=== PATIENT | female | born 1980 ===

== ENCOUNTER 2019-10-20 15:15 | Outpatient (CLI) | payer OTHER ==
--- NOTE | 2019-10-20 15:46 | RAD ---
TWO VIEWS CHEST: Comparison: None History: Pleuritic chest pain. FINDINGS: Two views of the chest shows normal sized cardiomediastinal silhouette. There is obscuring of the lat eral aspect of the left hemidiaphragm which may represent an infiltrate or a small left pleural effus ion. This is not appreciated on the lateral radiograph. IMPRESSION: Left lower lobe infiltrate versus small left pleural effusion. POS: [facility]
== END 2019-10-20 15:16 | disposition home or self-care (01) ==
LOC: MADRAD 15:15
PROVIDERS: ATTEND Family Medicine
DX: R07.81 Pleurodynia (principal)
CPT/HCPCS: 71046; 87633

== ENCOUNTER 2019-11-07 09:40 | Outpatient (CLI) | payer OTHER ==
--- NOTE | 2019-11-07 10:01 | RAD ---
EXAM: Two views chest PROVIDED CLINICAL HISTORY: Right lower lobe pneumonia COMPARISON: 10/20/2019 FINDINGS: Cardiac silhouette and pulmonary vasculature are within normal limits. The lungs are clear on today' s examination. The previously seen area of consolidation anterior aspect left lower lobe has resolved likely due to resolution of pneumonia. The osseous structures have a normal appearance. IMPRESSION: 1. No acute cardiopulmonary process. 2. Resolution of focal area of consolidation anterior left lower lobe likely related to resolution of pneumonia..
== END 2019-11-07 09:41 | disposition home or self-care (01) ==
LOC: MADRAD 09:40
PROVIDERS: ATTEND Family Medicine
DX: J18.9 Pneumonia, unspecified organism (principal)
CPT/HCPCS: 71046